=== PATIENT | female | born 1990 | race Caucasian/White ===

== ENCOUNTER 2018-12-21 07:25 | Day surgery (SDC) | payer MEDICAID ==
[2018-12-18 13:26] LABS: HEMATOCRIT 38.7 % (36.0-48.0); HEMOGLOBIN 13.1 g/dL (12-16); MCH 30.4 pg (26.0-34.0); MCHC 33.9 g/dL (31.0-37.0); MCV 89.8 fL (80.0-100.0); MEAN PLATELET VOLUME 10.5 fL (7.4-10.4); RBC 4.31 10x6/uL (4.00-5.40); RDW 12.6 % (11.5-14.5); WBC 9.2 10x3/uL (4.8-10.8)
[~2018-12-21] VITALS: Ht 160 cm; Wt 90.3 kg
[2018-12-21 08:14] VITALS: BP 131/78; Ht 160 cm; Wt 90.3 kg
[2018-12-21 08:36] LABS: HCG URINE NEGATIVE (NEGATIVE)
[2018-12-21] MEDS ORDERED: MIRALAX17 GM PO (11:28)
[2018-12-21] MEDS ORDERED: VALIUM5 MG PO (11:29)
[2018-12-21] MEDS ORDERED: TUCKS MEDICATE1 EACH TOPICAL (11:29)
--- NOTE | 2018-12-21 14:17 | NUR ---
PT ATTEMPTED TO URIANTE SEVERAL TIMES AND UNABLE TOO. [address] FLORINDA CINTRON
--- NOTE | 2018-12-21 15:05 | NUR ---
1420 BLADDER SCAN 384ML PAIN A 8 OUT OF 10. UNABLE TO URINATE SEVERAL TIMES. 1430 PT VOIDED A ADEQUET AMT OF YELLOW URIN. 1450 PO VALIUM GIVEN FOR PAIN.
== END 2018-12-21 13:30 | disposition home or self-care (01) ==
LOC: D.OPS 07:25 → D.PAN 09:30 → D.OPS 09:30 → D.PAN 09:35 → D.OPS 09:35
PROVIDERS: Anesthesiology; ATTEND Surgery
DX: K64.8 Other hemorrhoids (principal)